=== PATIENT | female | born 1955 | race Caucasian/White ===

== ENCOUNTER → 2017-03-28 | Outpatient (CLI) | payer BC ==
[~2017-03-28] MED LIST: ACETAMINOPHEN/C1 TA3 PO; CELEBREX200 MG PO; DITROPAN EQUIVAL5 MG PO
--- NOTE | 2017-03-28 15:32 | DIAGNOSTIC IMAGING REPORT ---
PROCEDURE: MG BILATERAL SCREENING W/CAD INDICATION: SCREENING TECHNIQUE: Bilateral CC and MLO digital views. COMPARISON: None available. FINDINGS: Computer-aided detection applied. Mildly dense parenchymal pattern. There is a 4 mm intramammary lymph node in the upper outer left breast. IMPRESSION: 1. Probable negative mammogram. Comparison with prior outside studies is recommended to confirm stability. These will be sent for. If and when these become available, an addendum can be issued this report. RESULT CODE: 0- Prior images needed. A. A negative report should not delay biopsy if a dominant or clinically suspicious mass is present. 10-15% of cancers are not identified by x-ray. B. A negative report may reinforce clinical impression. C. Adenosis and dense breasts may obscure an underlying neoplasm. D. False positive reports average 6-10%. E.. A yearly screening mammogram is recommended. A reminder letter will be scheduled.
== END ==
LOC: MAM SRH 03-21 14:30
DX: Z12.31 Encounter for screening mammogram for malignant neoplasm of breast (principal)